=== PATIENT | female | born 2000 | race Two or more races ===

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

== ENCOUNTER 2022-08-09 15:13 | Outpatient (CLI) | payer MEDICAID, SELFPAY ==
[2022-08-09 15:47] LABS: HCT 33.8 % (36.0-46.0); HGB 11.4 g/dL (11.2-15.7); MCH 29.2 pg (27.0-33.0); MCHC 33.7 % (32.0-36.0); MCV 87 fL (80-95); MPV 9.3 fL (8.0-11.0); Platelet Count 303 10^3/uL (130-400); RDW 12.9 % (11.7-14.6); RDW-SD 40.4 fL; WBC 5.05 10^3/uL (4.4-10.8)
== END 2022-08-09 15:14 | disposition home or self-care (01) ==
LOC: LBO 08-16 15:14
PROVIDERS: PCP Nurse Practitioner Family; Visit Provider Obstetrics & Gynecology Gynecology
DX: R10.31 Right lower quadrant pain (principal)
CPT/HCPCS: 36415; 85027

== ENCOUNTER 2023-08-21 19:34 | Outpatient (REF) | payer MEDICAID, SELFPAY ==
[2023-08-21 21:08] LABS: Abs Immature Grans 0.02 10^3/uL (0.0-0.06); Absolute Basophil Count 0.04 10^3/uL (0.0-0.2); Absolute Eosinophil Count 0.15 10^3/uL (0.0-0.7); Absolute Lymphocyte Count 1.93 10^3/uL (1.2-3.4); Absolute Monocyte Count 0.57 10^3/uL (0.1-0.8); Absolute Neutrophil Count 3.35 10^3/uL (1.2-6.7); Basophils % 0.7; Eosinophils % 2.5; HCT 39.2 % (36.0-46.0); HGB 13.2 g/dL (11.2-15.7); Immature Grans % 0.3; Lymphocytes % 31.8; MCHC 33.7 % (32.0-36.0); MCV 86 fL (80-95); MPV 10.3 fL (8.0-11.0); Monocytes % 9.4; Neutrophils % 55.3; Platelet Count 344 10^3/uL (130-400); RBC 4.55 10^6/uL (3.93-5.22); RDW 12.8 % (11.7-14.6); RDW-SD 40.1 fL; WBC 6.06 10^3/uL (4.4-10.8)
[2023-08-21 21:27] LABS: ALT 22 U/L (14-59); AST 19 U/L (15-37); Albumin 4.2 g/dL (3.4-5.0); Alkaline Phosphatase 112 U/L (46-116); Anion Gap 8.6 mmol/L (3-11); BUN 15 mg/dL (7-18); Bilirubin, Total 0.1 mg/dL (0.2-1.0); CO2 25.4 mmol/L (21.0-32.0); CREATININE 0.6 mg/dL (0.55-1.02); Calcium 9.5 mg/dL (8.5-10.1); Calculated LDL 94 mg/dL (<100); Chloride 103 mmol/L (98-107); Cholesterol 164 mg/dL (<200); Estimated GFR 130.88 (mL/min/1.73m2); Glucose 86 mg/dL (74-106); HDL Cholesterol 61 mg/dL (40-60); Potassium 3.9 mmol/L (3.5-5.1); Sodium 137 mmol/L (136-145); Total Protein 8.2 g/dL (6.4-8.2); Triglyceride 49 mg/dL (<150)
[2023-08-21 21:34] LABS: Hemoglobin A1C 5.2 % (<5.7)
== END 2023-08-21 19:35 | disposition home or self-care (01) ==
LOC: NCHCN 19:34
PROVIDERS: Visit Provider Nurse Practitioner Family
DX: N92.0 Excessive and frequent menstruation with regular cycle (principal); Z00.00 Encounter for general adult medical examination without abnormal findings; R35.89 Other polyuria
CPT/HCPCS: 80053; 80061; 83036; 84443; 85025

== ENCOUNTER 2024-08-01 11:47 | Outpatient (CLI) | payer MEDICAID, SELFPAY ==
--- NOTE | 2024-08-01 11:30 | DI.RAD_ITS ---
Exam(s) XR ANKLE RT COMPLETE EXAM: XR ANKLE RT COMPLETE CLINICAL HISTORY: Acute rt ankle pain, M25.571. TECHNIQUE: 2D digital imaging was performed. Three views. COMPARISON: No exams were available for comparison FINDINGS: BONES: No acute fracture is present. No bony destructive lesion is seen. JOINTS: The ankle mortise is normally aligned. SOFT TISSUE: Mild swelling around the lateral malleolus. IMPRESSION: No fracture or ankle mortise widening. DATA REPOSITORY: RADIATION DOSE DELIVERED:
== END 2024-08-01 12:07 ==
LOC: DI 11:48
PROVIDERS: Visit Provider Nurse Practitioner Family
DX: M25.571 Pain in right ankle and joints of right foot (principal)
CPT/HCPCS: 73610

== ENCOUNTER 2024-08-20 15:50 | Outpatient (CLI) | payer MEDICAID, SELFPAY ==
--- NOTE | 2024-08-20 16:07 | DI.RAD_ITS ---
Exam(s) XR ANKLE RT COMPLETE EXAM: XR ANKLE RT COMPLETE CLINICAL HISTORY: Pain of rt ankle and joints of rt foot, swelling, previous tib/fib imaging. TECHNIQUE: 2D digital imaging was performed. Three views. COMPARISON: CR XR ANKLE RT COMPLETE from 08/01/2024 FINDINGS: BONES: No acute fracture is present. No bony destructive lesion is seen. JOINTS: The ankle mortise is normally aligned. SOFT TISSUE: Normal. IMPRESSION: Unremarkable radiographs of the right ankle. DATA REPOSITORY: RADIATION DOSE DELIVERED:
== END 2024-08-20 16:10 ==
LOC: DI 15:55
PROVIDERS: Visit Provider Family Medicine
DX: M25.571 Pain in right ankle and joints of right foot (principal)
CPT/HCPCS: 73610

== ENCOUNTER 2024-10-04 21:42 | Outpatient (REF) | payer MEDICAID, SELFPAY | END 2024-10-04 21:43 | disposition home or self-care (01) | LOC: NCHCN 21:42 | PROVIDERS: Visit Provider Nurse Practitioner Family | DX: R10.30 Lower abdominal pain, unspecified (principal) | CPT/HCPCS: 87480; 87510; 87660 ==

== ENCOUNTER 2024-10-18 00:09 | Outpatient (CLI) | payer MEDICAID, SELFPAY ==
--- NOTE | 2024-10-18 | DI.US_ITS ---
Exam(s) US PELVIS EXAM: US PELVIS CLINICAL HISTORY: SUPRAPUBIC PAIN, LOWER ABD PIAN UNSPECIFIED, R10.30. TECHNIQUE: Transabdominal pelvic ultrasound was performed using standard protocol. The patient decl ined the transvaginal portion of the examination. COMPARISON: US US PELVIS from 10/14/2021 FINDINGS: UTERUS: Position: Anteverted. Size: 7.6 long by 3.4 AP by 4.2 transverse cm Endometrium: 0.4 cm. Normal for patient's menstrual status. Myometrium: Unremarkable. Cervix: Unremarkable. OVARIES: Right: 2.6 x 2.2 x 1.6 cm Cyst or mass: No suspicious cystic or solid masses. Left: 2.6 x 2.3 x 1.8 cm Cyst or mass: No suspicious cystic or solid masses. DOPPLER: Color: Symmetric and uniform flow to both ovaries. CUL-DE-SAC: Free fluid: None. Other: None. IMPRESSION: 1. Normal-appearing uterus with endometrial stripe within normal limits. 2. Unremarkable bilateral ovaries. DATA REPOSITORY:
== END 2024-10-18 00:29 ==
PROVIDERS: Visit Provider Nurse Practitioner Family
DX: R10.30 Lower abdominal pain, unspecified (principal)
CPT/HCPCS: 76856

== ENCOUNTER 2024-10-23 15:32 | Outpatient (CLI) | payer MEDICAID, SELFPAY ==
[2024-10-23 16:05] LABS: ALT 12 U/L (14-59); AST 12 U/L (15-37); Albumin 3.8 g/dL (3.4-5.0); Alkaline Phosphatase 100 U/L (46-116); Anion Gap 10.9 mmol/L (3-11); BUN 15 mg/dL (7-18); Bilirubin, Total 0.23 mg/dL (0.2-1.0); CO2 24.1 mmol/L (21.0-32.0); CREATININE 0.8 mg/dL (0.55-1.02); Calcium 9.3 mg/dL (8.5-10.1); Chloride 103 mmol/L (98-107); Estimated GFR 106.77 (mL/min/1.73m2); Glucose 98 mg/dL (74-106); Potassium 3.8 mmol/L (3.5-5.1); Sodium 138 mmol/L (136-145); Total Protein 7.9 g/dL (6.4-8.2)
== END 2024-10-23 15:33 | disposition home or self-care (01) ==
LOC: LBO 15:41
PROVIDERS: Visit Provider Nurse Practitioner Family
DX: R10.9 Unspecified abdominal pain (principal)
CPT/HCPCS: 36415; 80053

== ENCOUNTER 2024-10-29 02:42 | Outpatient (CLI) | payer MEDICAID, SELFPAY ==
--- NOTE | 2024-10-29 | DI.CT_ITS ---
Exam(s) CT ABDOMEN PELVIS W EXAM: CT ABDOMEN PELVIS W CLINICAL HISTORY: R10.3 Unspecified abd pain. TECHNIQUE: Imaging Protocol: Axial computed tomography images with coronal and sagittal reformatted images were created and reviewed CONTRAST MATERIAL: Intravenous: Omnipaque 350 Contrast volume:70 ml Oral: yes COMPARISON: No exams were available for comparison FINDINGS: ABDOMEN and PELVIS: Lung Bases: No acute findings. Liver: Normal density. No suspicious mass. Gallbladder and biliary tract: No radiodense calculus. No wall thickening or pericholecystic fluid. No biliary dilation. Pancreas: Normal density. No abnormal calcifications or inflammatory process. No evidence of mass. Spleen: Normal. Kidneys: Normal size, contour and axis. No radiodense stones. No obstructive uropathy. No suspicious masses seen. Adrenal glands: No masses seen. Vasculature: Abdominal aorta non-dilated. Soft tissues: Unremarkable. Bladder: No gross wall thickening. No calculi.No focal mass. Bowel: The small bowel is well opacified with oral contrast. The colon is opacified to the level of the mid descending colon. No obstruction. No bowel wall thickening. No evidence of appendicitis. Peritoneal cavity: No ascites. No focal collection. No mesenteric inflammatory response. No free air . Bones: Unremarkable for age. Reproductive organs: Unremarkable. Lymph nodes: No pathologically enlarged lymph nodes. IMPRESSION:: No acute abnormality in the abdomen or pelvis. RADIATION DOSE DELIVERED: Total DLP DATA REPOSITORY: All CT scans at this facility are submitted to the National Radiology Data Registry (NRDR) Dose Index Registry (DIR) with the [employer] (ACR). RADIATION OPTIMIZATION: All CT scans at this facility use at least one of these dose optimization te chniques: automated exposure control; mA and/or kV adjustment per patient size (includes targeted exa ms where dose is matched to clinical indication); or iterative reconstruction.
[2024-10-29] MEDS: Barium Sulfate 2% W/V-Berry Smoothie 450 ML BTL PO (12:59)
[2024-10-29] MEDS: Barium Sulfate 2% W/V-Creamy Vanilla Smoothie 450 ML BTL PO (13:00)
[2024-10-29] MEDS: Normal Saline - Diluent 50 ML VIAL IJ (15:19)
[2024-10-29] MEDS: Omnipaque 350 MG/ML 100 ML BTL 70 ML IJ (15:19)
== END 2024-10-29 03:02 ==
LOC: DI 02:43
PROVIDERS: PCP Nurse Practitioner Family; Visit Provider Nurse Practitioner Family
DX: R10.30 Lower abdominal pain, unspecified (principal)
CPT/HCPCS: 74177; J3490

== ENCOUNTER 2024-11-06 20:13 | Emergency (ER) | payer MEDICAID, SELFPAY ==
--- NOTE | 2024-11-06 20:00 | RT.EKG_ITS ---
APPROVED REPORT Exam: Resting ECG Reason for Exam: chest pain Patient Location: E HR:76 bpm ECG Measurements Heart Rate 76 AXIS CO 133 P 53 QRSd 77 QRS 48 QT 366 T 28 QTc 412 Conclusion Sinus rhythm...normal P axis, V-rate 60- 99 Probable left atrial enlargement...P >50mS, <-0.10mV V1 No STEMI
[2024-11-06 20:15] VITALS: BP 122/85; PULSE 78; RESP 18; TEMP 36.1; O2SAT 97
[2024-11-06 20:18] VITALS: RESP 18
[2024-11-06] MEDS: Ondansetron O.D.T. 4 MG TABEF PO (20:39)
--- NOTE | 2024-11-06 20:45 | DI.RAD_ITS ---
Exam(s) XR CHEST 2V PA LATERAL EXAM: XR CHEST 2V PA LATERAL CLINICAL HISTORY: Chest pain, cough TECHNIQUE: 2D digital imaging was performed of the chest. Two images were obtained. PA and lateral views were obtained. COMPARISON: No exams were available for comparison FINDINGS: MEDIASTINUM: Normal. HEART: Normal. PULMONARY VASCULATURE: Normal. LUNGS: Clear. PLEURAL SPACE: No pleural effusion or pneumothorax. BONE:Within normal limits for the patient's age. OTHER FINDINGS:Normal. IMPRESSION: No acute pulmonary findings. DATA REPOSITORY: RADIATION DOSE DELIVERED:
--- NOTE | 2024-11-06 20:47 | W.ED.GENAD ---
Discharge Plan Disposition Patient Disposition: Home Condition: Stable Discharge Details Clinical Impression: Anterior chest wall pain, Viral URI Primary Care Provider: Mechelle Gallego ED Provider: Alanna De La Rosa Home Meds and New Rx's Prescriptions: Continued sertraline 50 mg tablet 50 mg PO DAILY propranolol 10 mg tablet See Rx Instructions PO .COMPLEX Qty: 270 3RF Rx Instructions: 20mg am and 10mg at 4pm PO; fluoxetine 20 mg capsule 20 mg PO DAILY Qty: 30 1RF Rx Instructions: Take once daily by mouth with 40mg capsule. fluoxetine 40 mg capsule 40 mg PO DAILY Qty: 30 1RF Rx Instructions: Take once daily by mouth with 20mg capsule. famotidine 20 mg tablet See Rx Instructions .ROUTE .COMPLEX Qty: 60 3RF Dose Instruction: TAKE ONE TABLET BY MOUTH TWICE A DAY Rx Instructions: TAKE ONE TABLET BY MOUTH TWICE A DAY norgestimate-ethinyl estradiol [Ortho Tri-Cyclen (28)] 0.18/0.215/0.25 mg-35 mcg (28) tablet 1 tab PO DAILY Qty: 84 4RF multivitamin Tablet 1 tab PO DAILY Discharge Instructions Instructions: Costochondritis, Viral Upper Respiratory Infection, Adult (DC) Additional Instructions: Negative for rapid COVID and flu swab today. Chest x-ray within normal limits. I do suspect that this is chest wall pain. EKG is within normal limits. This is probably caused from your cough. Please take Tylenol or Ibuprofen with food every 4-6 hours as needed for pain and swelling. Alternate ice and heat. Follow up with primary care provider in 3-5 days. Return to ED sooner if any worsening or concerns. Referrals: Mechelle Gallego [Primary Care Provider] - 5 days HPI General Mode of arrival: ambulatory. Date/Time Provider Initiated Documentation: 11/06/24 20:37. Limitations to Documentation: no limitations. Information obtained by: patient, RN notes reviewed and old records reviewed. HPI Narrative: 24-year-old female presents to the ER with a chief complaint of midsternal chest pain which is reproducible with palpation. Cough and not feeling well all day. She also reports that she vomited couple times today.. She denies any dysuria vaginal discharge or bleeding. She reports that she is not had blood. In the last couple of months that has been followed by her PCP. Past medical history include reactive airway dysfunction syndrome, developmental delay. SHe does take pills. Has not been taking any Tylenol or ibuprofen today. Related Data Home Medications ?Medication ?Instructions ?Recorded ?Confirmed multivitamin 1 tab PO DAILY 10/01/18 11/06/24 fluoxetine 20 mg capsule 20 mg PO DAILY #30 caps 04/03/23 11/06/24 fluoxetine 40 mg capsule 40 mg PO DAILY #30 caps 04/03/23 11/06/24 famotidine 20 mg tablet See Rx Instructions .Route 04/21/23 11/06/24 .COMPLEX #60 tabs propranolol 10 mg tablet See Rx Instructions PO .COMPLEX 06/20/23 11/06/24 #270 tabs norgestimate-ethinyl estradiol 1 tab PO DAILY #84 tabs 07/17/23 11/06/24 0.18 mg/0.215mg/0.25mg-35 mcg(28)tablet (Ortho Tri-Cyclen (28)) sertraline 50 mg tablet 50 mg PO DAILY 08/01/24 11/06/24 Previous Rx's ?Medication ?Instructions ?Recorded fluoxetine 20 mg capsule 20 mg PO DAILY #30 caps 04/03/23 fluoxetine 40 mg capsule 40 mg PO DAILY #30 caps 04/03/23 famotidine 20 mg tablet See Rx Instructions .Route 04/21/23 .COMPLEX #60 tabs propranolol 10 mg tablet See Rx Instructions PO .COMPLEX 06/20/23 #270 tabs norgestimate-ethinyl estradiol 1 tab PO DAILY #84 tabs 07/17/23 0.18 mg/0.215mg/0.25mg-35 mcg(28)tablet (Ortho Tri-Cyclen (28)) Allergies Allergy/AdvReac Type Severity Reaction Status Date / Time Penicillins Allergy Intermediate RASH Verified 11/06/24 20:17 General Stated Complaint: Chest Pain CAIN: 3 Review of Systems All systems reviewed & are unremarkable except as noted in HPI and below Constitutional Constitutional: Reports as per HPI Cardiovascular Cardiovascular: Reports as per HPI and Reports chest pain Respiratory Respiratory: Reports chest congestion and Reports cough Exam Narrative Exam Narrative: Constitutional: Alert and oriented x3. Appears stated age. Normal body habitus. Head: Normocephalic, no trauma. Eyes: Pupils PERRL, Red reflex noted, EOM's intact. Eyelids symmetrical without lesions, discharge, or swelling. ENT: Bilateral TM's WNL, External ear normal to inspection, no mastoid TTP, swelling, or erythema, Nasal turbinates WNL, no nasal discharge. Normal dentition, Posterior pharynx WNL, no exudate. Chest: RRR, Normal S1, S2, distal pulses intact. Chest pain reproducible with palpation. Resp: Lungs clear to auscultation bilaterally, no wheezes, rales, or rhonchi. Abdomen: Soft, non-distended, Normoactive bowel sounds all 4 quads. Musculoskeletal: Normal gait, Moves all 4 extremities without difficulty. Skin: No suspicious rashes or lesions. Capillary refill less than 2 sec. Neurologic: Cranial nerves II-XII intact. Alert and oriented x 3. Motor: No deficits noted. Sensory: Intact bilaterally all 4 extremities. Hematologic/Lymphatic: No ecchymosis, no lymphadenopathy. Course Vital Signs Vital signs: Vital Signs Temperature 36.1 C L 11/06/24 20:15 Pulse 78 11/06/24 20:15 Respiratory Rate 18 11/06/24 20:15 Blood Pressure 122/85 11/06/24 20:15 Pulse Oximetry 97 11/06/24 20:15 Temperature 36.1 C L 11/06/24 20:15 Temperature Source Oral 11/06/24 20:15 Pulse 78 11/06/24 20:15 Respiratory Rate 18 11/06/24 20:18 Respiratory Effort Normal, Non-Labored 11/06/24 20:18 Respiratory Depth Normal 11/06/24 20:18 Respiratory Pattern Normal 11/06/24 20:18 Blood Pressure 122/85 11/06/24 20:15 Blood Pressure Position Sitting 11/06/24 20:15 Pulse Oximetry 97 11/06/24 20:15 Oxygen Delivery Method Room Air 11/06/24 20:15 Oxygen Flow Rate 0 11/06/24 20:15 Pain Level 5 11/06/24 20:18 Medical Decision Making 24-year-old female presents to the ER with a chief complaint of midsternal chest pain which is reproducible with palpation. Cough and not feeling well all day. She also reports that she vomited couple times today.. She denies any dysuria vaginal discharge or bleeding. She reports that she is not had blood. In the last couple of months that has been followed by her PCP. Past medical history include reactive airway dysfunction syndrome, developmental delay. SHe does take pills. Has not been taking any Tylenol or ibuprofen today. EKG done in triage. Flu COVID swab ordered by ED staff. Chest x-ray Zofran 4 mg ODT, Tylenol p.o. Urinalysis and urine test. EKG was reviewed by myself and Dr. Herbert ER attending, normal sinus rhythm, no old EKG available for review. Chest x-ray within normal limits. Negative for rapid POC COVID flu. I do suspect chest wall pain due to the coughing. Will instruct on Tylenol ibuprofen alternating ice and heat and strict return instructions. This text was generated using [employer] dictation system, please disregard any oddities of phrase or misspellings. Imaging Data Radiologic Study: Imaging: X-Ray Radiologist's impression: TECHNIQUE: Imaging protocol: Radiologic exam of the chest. Views: 2 views. COMPARISON: CT ABDOMEN PELVIS W 10/29/2024 3:02 PM FINDINGS: Lungs: Unremarkable. No consolidation. Pleural spaces: Unremarkable. No pleural effusion. No pneumothorax. Heart/Mediastinum: Unremarkable. No cardiomegaly. Bones/joints: Unremarkable. IMPRESSION: No acute findings. Thank you for allowing us to participate in the care of your patient. Dictated and Authenticated by: Alexander Lewis MD Quality:SDOH Health Related Social Needs: No Data to Display PFSH All Active Problems (Updated 11/06/24 @ 22:11 by Alanna De La Rosa NP) Viral URI (Acute) Anterior chest wall pain (Acute) Right lower quadrant pain (Acute) Focal tenderness with no fever chills nausea or vomiting we will check CBC. Oral contraceptive pill surveillance (Acute) 07/2022. Currently no breakthrough bleeding on current regime x1 month. We will continue to follow-up on a monthly basis. 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) Routine child health exam (Chronic 03/25/14) Medical History Acid reflux disease Causes chest pain Family disruption due to child in welfare custody Fracture of fifth metacarpal bone (06/17/13) Reactive airways dysfunction syndrome Developmental delay Surgical History Myringotomy w/ PE (pressure equalizing) tubes Social History Smoking/Tobacco Use Status: Never Smoking risk assessment performed?: Yes Alcohol Intake: never Drug use: Never Substance use type: does not use Household members: adopted family and other Details: Patient brother adopted when children. Other siblings and family are also Housing: house Number of Children: 0 Education Level: high school Details: Transition year Do you need help understanding health information?: Always current occupation: Works in [employer] in [place] Pets and animals: Yes Pets and animals: dog(s) Sexually active: No What type of physical activity do you participate in: walking Seatbelt use: always Do you feel safe at home: Yes Do you feel safe in your relationship?: Yes Additional Social history: Lives with adopted mom and dad
[2024-11-06] MEDS: Acetaminophen 500 MG TAB 1000 MG PO (21:00)
[2024-11-06 21:13] LABS: Bilirubin Negative (Negative); Blood Negative (Negative); Clarity Clear (Clear); Glucose Negative (Negative); Ketones Negative (Negative); Leukocyte Esterase Small (Negative); Nitrite Negative (Negative); Specific Gravity 1.025 (1.005-1.025)
[2024-11-06 21:20] LABS: Bacteria Few HPF (Negative); C & S Indicated? No; Crystals Rare Amorphous HPF (Negative); Epithelial Cells Many HPF (Negative); Mucus Trace (Negative); RBC Negative HPF (0-2)
--- NOTE | 2024-11-06 22:09 | DI.VRAD_ITS ---
PROCEDURE INFORMATION: Exam: XR Chest Exam date and time: 11/06/2024 9:44 PM Age: 24 years old Clinical indication: Cough, chest pain TECHNIQUE: Imaging protocol: Radiologic exam of the chest. Views: 2 views. COMPARISON: CT ABDOMEN PELVIS W 10/29/2024 3:02 PM FINDINGS: Lungs: Unremarkable. No consolidation. Pleural spaces: Unremarkable. No pleural effusion. No pneumothorax. Heart/Mediastinum: Unremarkable. No cardiomegaly. Bones/joints: Unremarkable. IMPRESSION: No acute findings. Dictated and Authenticated by: Alexander Lewis MD. Orderin Rj Mondragon MD
[2024-11-06 22:27] VITALS: BP 100/52; PULSE 66; RESP 19; TEMP 36.7; O2SAT 99
--- NOTE | 2024-11-07 10:50 | NUR.NOTE ---
Nursing Note: Received call from patient who needs a work note after recent ER visit. Patient requesting it to be emailed, emailed it to email on file which was verified w/patient
--- NOTE | 2024-11-07 11:38 | NUR.NOTE ---
Access chart to get pt phone number to let her know she can sisal picker the work note. Nursing Note:
== END 2024-11-06 22:27 | disposition home or self-care (01) ==
PROVIDERS: Emergency Provider Registered Nurse Emergency; PCP Nurse Practitioner Family
DX: R07.89 Other chest pain (principal); J06.9 Acute upper respiratory infection, unspecified; B97.89 Other viral agents as the cause of diseases classified elsewhere
CPT/HCPCS: 81025; 87426; 93005; 99285; 71046; 81003; 81015; 93010; 99284

== ENCOUNTER 2024-12-26 18:23 | Outpatient (REF) | payer MEDICAID, SELFPAY | END 2024-12-26 18:24 | disposition home or self-care (01) | LOC: LBN 18:23 | PROVIDERS: PCP Nurse Practitioner Family; Visit Provider Physician Assistant Medical | DX: J02.9 Acute pharyngitis, unspecified (principal) | CPT/HCPCS: 87070 ==

== ENCOUNTER 2025-01-13 16:45 | Outpatient (CLI) | payer MEDICAID, SELFPAY ==
[2025-01-13 17:13] LABS: Hemoglobin A1C 5.2 % (<5.7)
[2025-01-13 17:46] LABS: TSH (W/Ref FT4) 2.68 uIU/mL (0.36-3.74)
[2025-01-14 18:31] LABS: Prolactin 21.3 ng/mL (See Note)
[2025-01-27 11:56] LABS: Testosterone, Bioavailable 1.3 ng/dL; Testosterone, Free 0.98 ng/dL (<0.13-1.08); Testosterone, Total 36 ng/dL (8-60)
== END 2025-01-13 16:46 | disposition home or self-care (01) ==
LOC: LBO 16:46
PROVIDERS: PCP Nurse Practitioner Family; Visit Provider Obstetrics & Gynecology
DX: N91.2 Amenorrhea, unspecified (principal); L68.0 Hirsutism; N64.52 Nipple discharge
CPT/HCPCS: 36415; 84402; 84403; 84410; 83036; 84146; 84443

== ENCOUNTER 2025-01-23 20:31 | Emergency (ER) | payer MEDICAID, SELFPAY ==
--- NOTE | 2025-01-23 20:31 | W.ED.GENAD ---
Discharge Plan Disposition Patient Disposition: Home Discharge Details Clinical Impression: Acute effusion of both middle ears, Hearing loss Primary Care Provider: Mechelle Gallego ED Provider: Jn Herbert Home Meds and New Rx's Prescriptions: New cefpodoxime 200 mg tablet 200 mg PO Q12H Qty: 20 0RF Rx Instructions: must administer with a meal/food Continued propranolol 10 mg tablet See Rx Instructions PO .COMPLEX Qty: 270 3RF Rx Instructions: 20mg am and 10mg at 4pm PO; famotidine 20 mg tablet See Rx Instructions .ROUTE .COMPLEX Qty: 60 3RF Dose Instruction: TAKE ONE TABLET BY MOUTH TWICE A DAY Rx Instructions: TAKE ONE TABLET BY MOUTH TWICE A DAY sertraline 50 mg tablet 100 mg PO DAILY albuterol sulfate 90 mcg/actuation HFA aerosol inhaler 2 puff inhalation Q4H PRN Cortisporin-TC 3.3-3-10-0.5 mg/mL drops,suspension 4 drp otic (ear) TID hydroxyzine HCl 25 mg tablet 25 mg PO TID PRN ondansetron 4 mg tablet,disintegrating 4 mg PO BID PRN multivitamin Tablet 1 tab PO DAILY Discharge Instructions Instructions: Ear Infection ED Additional Instructions: You are seen in the emergency department for your ear pain. You are found to have ear infections. As we discussed these may be the result of viruses. In the event that there is a component of a bacterial infection you are receiving antibiotics that you should take as directed. A referral has been placed for you to be seen by the ear nose and throat team. As we discussed if you develop fevers worsening pain or cannot eat or drink please return immediately to the emergency department. Referrals: Teo Vela MD [ [facility] STAFF PHYSICIAN] - [facility] General Date/Time Provider Initiated Documentation: 01/23/25 20:31. HPI Narrative: MDM This is an uncomfortable appearing 24-year-old female failing outpatient management of bilateral acute otitis media with bilateral enlarged anterior cervical lymph nodes concerning for systemic process for which patient will undergo CT scan to assess for deeper abscesses. Patient has no mastoid tenderness to suggest mastoiditis. Given failed outpatient management patient likely has viral otitis. She is not a diabetic to suggest malignant otitis externa. She is not having any oral pain to suggest odontogenic infection. No nausea nor vomiting to suggest subdural empyema. Her uvula is midline so not suspicious for peritonsillar abscess. She has good range of motion in her neck so my suspicion is low for retropharyngeal abscess. She has no conjunctival injection to suggest nontypeable H. influenzae. She has no fevers to suggest Lemierre's syndrome. She has no significant posterior oropharynx erythema to suggest strep pharyngitis. In the absence of fever I did not send mono. No [place] spots in mouth to suggest measles. She is handling her secretions so my suspicion for bacterial tracheitis is low. She has no significant neck pain or difficulty swallowing nor unintentional weight loss I do not feel that she requires flexible laryngoscopy to assess her upper airway. She has had no B symptoms though malignancy is on the differential. No vesicles in ear to suggest bullous myringitis. In the setting of hearing loss I consider whether or not to complete a Ward or [place] test. Given the bilateral middle ear effusions I felt that the patient most likely had conductive hearing loss so I did not perform additional testing. I treated patient with cefpodoxime in the event that there was a chronic bacterial infection that had not responded to initial treatment (though I am not certain which antibiotics were used this patient does not have record). A CAT scan of the neck was performed, which showed no signs of a larger infection or issues outside of the ears. Eardrops are not recommended as there is no external infection. I sent today message will be sent to the ENT department to expedite her follow-up appointment. If she experiences fevers or worsening symptoms, she should return to the ER. HPI This is a 24-year-old female who received her immunizations during childhood now presenting to the emergency department via private vehicle in the setting of ear infections.. She was diagnosed with an ear infection approximately 1 month ago and was prescribed an antibiotic regimen. Despite completing the course, the infection persisted. A second course of antibiotics and prednisone was initiated, with the final dose administered today. Additionally, she was prescribed eardrops. Her scheduled appointment was canceled due to the ongoing infection, and she was referred to an rehabilitation center manager, with the earliest available appointment in 03/2025. She has been experiencing progressive hearing loss, which began about a week ago. She reports no fevers or oral pain but does experience intermittent throat discomfort. She has a history of ear infections during her childhood but none in recent years. She had a strep throat infection a few months ago, for which a tonsillectomy was considered but ultimately deemed unnecessary. She continues to experience ear pain. She reports no respiratory distress or neck pain. She has been observed holding her ears. During her last medical visit, it was noted that she had significant fluid accumulation in her knee. Supplemental Information She is on sertraline and a medication as needed for anxiety. She takes Zofran for nausea but has not taken it in a long time. She takes a multivitamin and a medication for tremor. She also takes a medication for acid reflux. Exam General: Well-appearing in no acute distress speaking in complete sentences. Head: Normocephalic, atraumatic. Eye:[Pupils equal, round reactive to light.] Extraocular eye movements intact. No conjunctival injection. No scleral icterus. Ear, nose, mouth, throat: Bilateral TMs dull not bulging with opacity but no obvious fluid levels. Right TM mildly erythematous. No mastoid tenderness bilaterally. No proptosis. Normal voice, handling secretions normally. Bilateral anterior tender cervical lymph nodes. No brawny edema submentally. Uvula midline. Neck: Trachea midline. Good range of motion in neck. Cardiovascular: Well-perfused distal extremities. Respiratory: Nonlabored respiration. Clear lungs bilaterally. Gastrointestinal: Nondistended abdomen. Musculoskeletal: No edema. Moving all 4 extremities spontaneously. Skin: Normal for age and race, grossly normal temperature and turgor. No acute rash. Neurologic: Alert and appropriate, no apparent acute deficits. Psychiatric: Mood and manner are appropriate. Grooming and personal hygiene are appropriate. Related Data Home Medications ?Medication ?Instructions ?Recorded ?Confirmed multivitamin 1 tab PO DAILY 10/01/18 01/23/25 famotidine 20 mg tablet See Rx Instructions .Route 04/21/23 01/23/25 .COMPLEX #60 tabs propranolol 10 mg tablet See Rx Instructions PO .COMPLEX 06/20/23 01/23/25 #270 tabs albuterol sulfate 90 mcg/actuation 2 puff inhalation Q4H PRN 01/23/25 01/23/25 aerosol inhaler cefpodoxime 200 mg tablet 200 mg PO Q12H #20 tabs 01/23/25 hydroxyzine HCl 25 mg tablet 25 mg PO TID PRN 01/23/25 01/23/25 [id number] 3.3 4 drp otic (ear) TID 01/23/25 01/23/25 mg-3 mg-10 mg-0.5 mg/mL ear drops,susp (Cortisporin-TC) ondansetron 4 mg disintegrating 4 mg PO BID PRN 01/23/25 01/23/25 tablet sertraline 50 mg tablet 100 mg PO DAILY 01/23/25 01/23/25 Previous Rx's ?Medication ?Instructions ?Recorded famotidine 20 mg tablet See Rx Instructions .Route 04/21/23 .COMPLEX #60 tabs propranolol 10 mg tablet See Rx Instructions PO .COMPLEX 06/20/23 #270 tabs cefpodoxime 200 mg tablet 200 mg PO Q12H #20 tabs 01/23/25 Allergies Allergy/AdvReac Type Severity Reaction Status Date / Time Penicillins Allergy Intermediate RASH Verified 01/23/25 20:39 ethinyl estradiol (From Allergy Unknown Skin Rash Unverified 01/23/25 20:39 Xulane) norelgestromin (From Xulane) Allergy Unknown Skin Rash Unverified 01/23/25 20:39 General CAIN: 3 Medical Decision Making Quality:SDOH Health Related Social Needs: No Data to Display PFSH All Active Problems (Updated 01/23/25 @ 22:47 by Jn Herbert MD) Hearing loss (Acute) Acute effusion of both middle ears (Acute) Acute otitis media, bilateral (Acute) Amenorrhea (Acute) Right lower quadrant pain (Acute) Focal tenderness with no fever chills nausea or vomiting we will check CBC. Oral contraceptive pill surveillance (Acute) 07/2022. Currently no breakthrough bleeding on current regime x1 month. We will continue to follow-up on a monthly basis. 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) Routine child health exam (Chronic 03/25/14) Medical History (Updated 01/23/25 @ 22:47 by Jn Herbert MD) Impacted cerumen of both ears COVID-19 Acute depression Injury of head Suprapubic pain Abdominal pain Heartburn Vomiting Cough Delay in physiological development Malaise and fatigue Chronic constipation Sore throat Viral syndrome Acid reflux disease Causes chest pain Family disruption due to child in welfare custody Fracture of fifth metacarpal bone (06/17/13) Reactive airways dysfunction syndrome Developmental delay Surgical History Myringotomy w/ PE (pressure equalizing) tubes Family History (Updated 01/23/25 @ 10:23 by Shoshana Bourne RN) Self Adopted Social History Smoking/Tobacco Use Status: Never Smoking risk assessment performed?: Yes Alcohol Intake: never Drug use: Never Substance use type: does not use Household members: adopted family and other Details: Patient brother adopted when children. Other siblings and family are also Housing: house Number of Children: 0 Education Level: high school Details: Transition year Do you need help understanding health information?: Always current occupation: Works in [employer] at [employer] in [place] Pets and animals: Yes Pets and animals: dog(s) Sexually active: No What type of physical activity do you participate in: walking Seatbelt use: always Do you feel safe at home: Yes Do you feel safe in your relationship?: Yes Additional Social history: Lives with adopted mom and dad
[2025-01-23 20:34] VITALS: BP 130/80; PULSE 72; RESP 18; TEMP 36.8; O2SAT 97
[2025-01-23 21:17] LABS: Abs Immature Grans 0.05 10^3/uL (0.0-0.06); Absolute Basophil Count 0.02 10^3/uL (0.0-0.2); Absolute Eosinophil Count 0.02 10^3/uL (0.0-0.7); Absolute Lymphocyte Count 1.98 10^3/uL (1.2-3.4); Absolute Monocyte Count 0.74 10^3/uL (0.1-0.8); Absolute Neutrophil Count 4.21 10^3/uL (1.2-6.7); Basophils % 0.3 %; Eosinophils % 0.3 %; HCT 36.5 % (36.0-46.0); HGB 12.5 g/dL (11.2-15.7); Immature Grans % 0.7 %; Lymphocytes % 28.2 %; MCH 28.9 pg (27.0-33.0); MCHC 34.2 % (32.0-36.0); MCV 85 fL (80-95); MPV 9.2 fL (8.0-11.0); Monocytes % 10.5 %; Platelet Count 351 10^3/uL (130-400); RBC 4.32 10^6/uL (3.93-5.22); RDW 13.3 % (11.7-14.6); RDW-SD 41.4 fL; WBC 7.02 10^3/uL (4.4-10.8)
[2025-01-23] MEDS: Normal Saline - Diluent 50 ML VIAL IJ (21:19)
[2025-01-23] MEDS: Omnipaque 350 MG/ML 100 ML BTL IJ (21:22)
[2025-01-23 21:26] LABS: Anion Gap 9.1 mmol/L (3-11); BUN 16 mg/dL (7-18); CO2 26.9 mmol/L (21.0-32.0); CREATININE 0.6 mg/dL (0.55-1.02); Calcium 9.4 mg/dL (8.5-10.1); Chloride 102 mmol/L (98-107); Estimated GFR 130.07 (mL/min/1.73m2); Glucose 100 mg/dL (74-106); Potassium 3.9 mmol/L (3.5-5.1); Sodium 138 mmol/L (136-145)
--- NOTE | 2025-01-23 21:29 | DI.CT_ITS ---
Exam(s) CT NECK W EXAM: CT NECK W INDICATION: Bilateral anterior neck pain tenderness acute otit. COMPARISON: No exams were available for comparison TECHNIQUE: FINDINGS: VISUALIZED PARANASAL SINUSES: Unremarkable. MIDDLE EAR CAVITIES: No fluid nor masses nor ossicular destruction. NASOPHARYNX: Unremarkable ORODENTAL: Unremarkable. OROPHARYNX: Unremarkable. No masses evident. HYPOPHARYNX: Unremarkable. Valleculae and epiglottis and aryepiglottic folds appear normal. VOCAL CORDS: Unremarkable. No masses evident. Subglottic airway appears unremarkable. THYROID GLAND: Unremarkable. Normal size and no obvious nodules. SALIVARY GLANDS: Unremarkable. No significant findings in the parotid and submandibular glands. LYMPH NODES: There is no adenopathy evident on either side of the neck or in the supraclavicular bisi ons. CERVICAL SPINE: No fractures nor listhesis and no disc space narrowing. Bone density normal. Facet joints unremarkable. VISUALIZED LUNG APICES: No significant findings. IMPRESSION: 1. No significant findings on this CT scan of the soft tissues of the neck. RADIATION DOSE DELIVERED: 295.24mGy.cm Total DLP DATA REPOSITORY: All CT scans at this facility are submitted to the National Radiology Data Registry (NRDR) Dose Index Registry (DIR) with the [employer] (ACR). RADIATION OPTIMIZATION: All CT scans at this facility use at least one of these dose optimization te chniques: automated exposure control; mA and/or kV adjustment per patient size (includes targeted exa ms where dose is matched to clinical indication); or iterative reconstruction.
[2025-01-23] MEDS: Acetaminophen 500 MG TAB 1000 MG PO (21:48)
--- NOTE | 2025-01-23 22:04 | DI.VRAD_ITS ---
PROCEDURE INFORMATION: Exam: CT Neck With Contrast Exam date and time: 01/23/2025 9:15 PM Age: 24 years old Clinical indication: Other: Bilateral anterior neck pain tenderness acute chris externa TECHNIQUE: Imaging protocol: Computed tomography of the neck with contrast. Contrast material: OMNIPAQUE 350; Contrast volume: 100 ml; Contrast route: INTRAVENOUS (IV); COMPARISON: CR XR CHEST 2V PA LATERAL 11/06/2024 9:44 PM FINDINGS: Salivary glands: Normal. Glands are normal in size. Pharynx: Unremarkable. No significant tonsillar enlargement. Larynx: Unremarkable. Epiglottis is normal. Thyroid: Normal. No enlarged or calcified nodules. Trachea: Visualized trachea is unremarkable. Lungs: Unremarkable as visualized. Lymph nodes: Unremarkable. No lymphadenopathy. Bones/joints: Unremarkable. No acute fracture. Soft tissues: Unremarkable. No significant soft tissue swelling. IMPRESSION: No acute findings. Dictated and Authenticated by: Satya Cortés MD. Orderin Piedad Ragsdale MD
[2025-01-23 22:51] VITALS: BP 130/79; PULSE 88; RESP 20; TEMP 36.9; O2SAT 99
[2025-01-23] MEDS: Cefpodoxime 200 MG TAB PO (22:53)
== END 2025-01-23 22:53 | disposition home or self-care (01) ==
PROVIDERS: Emergency Provider Emergency Medicine; PCP Nurse Practitioner Family
DX: H65.193 Other acute nonsuppurative otitis media, bilateral (principal); H91.93 Unspecified hearing loss, bilateral
CPT/HCPCS: 99285; 99283; 70491; 80048; 85025; J3490

== ENCOUNTER 2025-04-09 19:30 | Emergency (ER) | payer MEDICAID, SELFPAY ==
[2025-04-09 19:32] VITALS: BP 126/75; PULSE 73; RESP 16; TEMP 36.9; O2SAT 98
--- NOTE | 2025-04-09 19:44 | W.ED.GENAD ---
Discharge Plan Disposition Patient Disposition: Home Condition: Stable Discharge Details Clinical Impression: Sprain of right ankle Primary Care Provider: Mechelle Gallego ED Provider: Rob Phillips Home Meds and New Rx's Prescriptions: Continued norethindrone-e.estradiol-iron [[place] Fe 10/07 (28)] 1 mg-20 mcg (21)/75 mg (7) tablet 1 tab PO DAILY famotidine 20 mg tablet See Rx Instructions .ROUTE .COMPLEX Qty: 60 3RF Dose Instruction: TAKE ONE TABLET BY MOUTH TWICE A DAY Rx Instructions: TAKE ONE TABLET BY MOUTH TWICE A DAY sertraline 50 mg tablet 100 mg PO DAILY albuterol sulfate 90 mcg/actuation HFA aerosol inhaler 2 puff inhalation Q4H PRN hydroxyzine HCl 25 mg tablet 25 mg PO TID PRN ondansetron 4 mg tablet,disintegrating 4 mg PO BID PRN multivitamin Tablet 1 tab PO DAILY propranolol 10 mg tablet 10 mg PO DAILY Rx Instructions: once daily at night Discharge Instructions Instructions: Ankle Sprain ED Additional Instructions: You were seen in the emergency department for the sprain of your right ankle, there is no fracture seen on x-ray, please rest, ice, compress and elevate the ankle often. Please use therapeutic dosing of Tylenol (acetamenophen) & Advil (ibuprofen) in an alternating fashion as follows: Take 1000mg of Tylenol every 6 hours without missing doses- that is 4 times per day. [place] in between the Tylenol dosings, take 400-600mg of Advil also on a 6 hour schedule, that is also 4 times per day. The daily maximum dosing of Tylenol is 4000mg, and the daily maximum dosing of Advil is 2400mg. This is safe to do for weeks. Please note that some common cold medications & prescription pain medications may contain acetamenophen and you need to read OTC drug labels and factor that in to maximum daily dosings. Please follow-up with orthopedics for any complications, return to the emergency room department for any signs of neurovascular compromise to the foot Stand Alone Forms: Work Release Referrals: Mechelle Galleog [Primary Care Provider, Medicine] Discharge Data Discharge Date/Time-TO BE ENTERED AT DEPARTURE: 04/09/25 21:36 HPI General Date/Time Provider Initiated Documentation: 04/09/25 19:35. HPI Narrative: 24 year-old female presents to ED today by POV/ambulating with a chief complaint of R ankle pain- twisted it at work, striking a metal rack in the kitchen on R ankle with onset just prior to arrival. Quality described as painful, worse with weight-bearing, no radiation to numbness/tingling, complete inability to weight-bear, open lesion. Severity is described as moderate. Palliating factors include iced it for 20 minutes but still hurts. Provoking factors include nothing specific. Patient not anticoagulated. Related Data Home Medications ?Medication ?Instructions ?Recorded ?Confirmed multivitamin 1 tab PO DAILY 10/01/18 04/09/25 famotidine 20 mg tablet See Rx Instructions .Route 04/21/23 04/09/25 .COMPLEX #60 tabs albuterol sulfate 90 mcg/actuation 2 puff inhalation Q4H PRN 01/23/25 04/09/25 aerosol inhaler hydroxyzine HCl 25 mg tablet 25 mg PO TID PRN 01/23/25 04/09/25 ondansetron 4 mg disintegrating 4 mg PO BID PRN 01/23/25 04/09/25 tablet sertraline 50 mg tablet 100 mg PO DAILY 01/23/25 04/09/25 norethindrone 1 mg-ethinyl 1 tab PO DAILY 04/03/25 04/09/25 estradiol 20 mcg (21)-iron 75 mg (7) tablet ([place] Fe 10/07 (28)) propranolol 10 mg tablet 10 mg PO DAILY 04/09/25 04/09/25 Previous Rx's ?Medication ?Instructions ?Recorded famotidine 20 mg tablet See Rx Instructions .Route 04/21/23 .COMPLEX #60 tabs Allergies Allergy/AdvReac Type Severity Reaction Status Date / Time Penicillins Allergy Intermediate RASH Verified 04/09/25 19:36 ethinyl estradiol (From Allergy Unknown Skin Rash Unverified 04/09/25 19:36 Xulane) norelgestromin (From Xulane) Allergy Unknown Skin Rash Unverified 04/09/25 19:36 General Stated Complaint: Orthopedic CAIN: 4 Review of Systems All systems reviewed & are unremarkable except as noted in HPI and below Exam Narrative Exam Narrative: GENERAL APPEARANCE: Well-nourished, non-toxic, awake and alert, atraumatic, no acute distress. SKIN: Warm, pink, dry, intact, without rashes/lesions/ulcerations. HEAD: Normocephalic, atraumatic, normal hair distribution for gender/age. EYES: Normal conjunctiva, no exudates on lids/lashes. ENT: Nares patent, no circumoral cyanosis, no facial swelling NECK: Supple, trachea midline, painless cervical ROM. LUNGS/CHEST: Non-labored respirations, normal A/P diameter, symmetrical expansion, no chest wall deformity HEART (CV/PV): Regular rate, R dorsalis pedis pulse 2+, no peripheral edema, no JVD. ABDOMEN: Soft, non-distended, no guarding. MSK: Normal ROM, no swelling/deformity to bilateral UEs or LEs, moving all extremities without weakness, no cyanosis, spine midline without tenderness, normal curvature. R FOOT/ANKLE: Tenderness to palpation of the lateral malleolus and lateral foot with mild swelling, no deformity, brisk capillary refill distal, no fibular head tenderness NEURO: Mental Status AAOx4 - alert to person, place, time, events No facial droop, no forehead involvement. Motor: No focal weakness - strength 5/5 in bilateral UEs and LEs, proximal and distal, symmetric. Sensory: sensation intact to light touch globally. Gait antalgic. PSYCH: euthymic, cooperative, pleasant, appropriate speech Course Vital Signs Vital signs: Vital Signs Temperature 36.9 C 04/09/25 19:32 Pulse 73 04/09/25 19:32 Respiratory Rate 16 04/09/25 19:32 Blood Pressure 126/75 04/09/25 19:32 Pulse Oximetry 98 04/09/25 19:32 Temperature 36.9 C 04/09/25 19:32 Temperature Source Oral 04/09/25 19:32 Pulse 73 04/09/25 19:32 Respiratory Rate 16 04/09/25 19:32 Blood Pressure 126/75 04/09/25 19:32 Blood Pressure Position Sitting 04/09/25 19:32 Pulse Oximetry 98 04/09/25 19:32 Oxygen Delivery Method Room Air 04/09/25 19:32 Oxygen Flow Rate 0 04/09/25 19:32 Pain Level 5 04/09/25 19:39 Medical Decision Making This dictation utilizes [id number] dictation software and may contain unedited grammatical errors. 24 year-old female presents to ED today by POV/ambulating with a chief complaint of R ankle pain- R-side dominant- twisted it at work, striking a metal rack in the kitchen on R ankle with onset just prior to arrival. Quality described as painful, worse with weight-bearing, no radiation to numbness/tingling, complete inability to weight-bear, open lesion. Severity is described as moderate. Palliating factors include iced it for 20 minutes but still hurts. Provoking factors include nothing specific. Patients' medical history: noncontributory. Family and social history: noncontributory. Pertinent exam findings / vital signs include R ankle swelling, R dorsalis pedis pulse 2+, R lateral foot tenderness without crepitus, no proximal calf/knee tenderness. Differential / pathologies of concern include sprain/strain, contusion, fracture. Diagnostic studies of: -XR R Foot & Ankle - no fracture seen. Interventions of: -nallely wrap. ED Course/Assessment/Plan: 24-year-old female presents with right ankle pain after she twisted and banged off a metal rack in the kitchen, has no fracture on x-ray likely sprain of the ankle, recommend RICE therapy and therapeutic dosing of Tylenol and ibuprofen. Findings not consistent with [ ]. Disposition of Sprain of Right Ankle. Patient verbalized understanding of the plan and return to ED criteria and engaged in shared decision making. Medical Records Medical records reviewed: Yes I reviewed the patient's medical records. Imaging Data Radiologic Study: Attestation: I personally reviewed and interpreted this imaging study as follows: Imaging: X-Ray Radiologist's impression: Exam: XR Right Ankle Exam date and time: 04/09/2025 8:24 PM Age: 24 years old Clinical indication: Ankle and foot; Right; R foot and ankle pain TECHNIQUE: Imaging protocol: Radiologic exam of the right ankle. Views: 3 or more views. COMPARISON: No relevant prior studies available. FINDINGS: Bones/joints: No acute fracture. No dislocation. No suspicious bony lesions. Soft tissues: There is lateral malleolar soft tissue swelling. No tibiotalar joint effusion. IMPRESSION: No acute fracture or dislocation. Dictated and Authenticated by: Gemma Schaefer MD. Radiologic Study #2: Attestation: I personally reviewed and interpreted this imaging study as follows: Imaging: X-Ray Radiologist's impression: Exam: XR Right Foot Exam date and time: 04/09/2025 8:22 PM Age: 24 years old Clinical indication: Ankle and foot; Right; R foot and ankle pain TECHNIQUE: Imaging protocol: Radiologic exam of the right foot. Views: 3 or more views. COMPARISON: CR XR ANKLE RT COMPLETE 08/20/2024 3:56 PM FINDINGS: Bones/joints: No acute fracture or dislocation. No suspicious bony lesions. Soft tissues: No soft tissue swelling. IMPRESSION: No acute radiographic findings. If pain persists, consider repeat imaging in 5-7 days to exclude occult fracture. PFSH All Active Problems (Updated 04/09/25 @ 20:45 by WILMER Gama) Sprain of right ankle (Acute) Conductive hearing loss of both ears (Acute) Acute otitis media, bilateral (Acute) Amenorrhea (Acute) Right lower quadrant pain (Acute) Focal tenderness with no fever chills nausea or vomiting we will check CBC. Oral contraceptive pill surveillance (Acute) 07/2022. Currently no breakthrough bleeding on current regime x1 month. We will continue to follow-up on a monthly basis. 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) Routine child health exam (Chronic 03/25/14) Medical History (Updated 04/09/25 @ 20:45 by WILMER Gama) Impacted cerumen of both ears COVID-19 Acute depression Injury of head Suprapubic pain Abdominal pain Heartburn Vomiting Cough Delay in physiological development Malaise and fatigue Chronic constipation Sore throat Viral syndrome Acid reflux disease Causes chest pain Family disruption due to child in welfare custody Fracture of fifth metacarpal bone (06/17/13) Reactive airways dysfunction syndrome Developmental delay Surgical History Myringotomy w/ PE (pressure equalizing) tubes Family History (Updated 01/23/25 @ 10:23 by Shoshana Bourne RN) Self Adopted Social History Smoking/Tobacco Use Status: Never Smoking risk assessment performed?: Yes Alcohol Intake: never Drug use: Never Substance use type: does not use Household members: adopted family and other Details: Patient brother adopted when children. Other siblings and family are also Housing: house Number of Children: 0 Education Level: high school Details: Transition year Do you need help understanding health information?: Always current occupation: Works in [employer] at [employer] in [place] Pets and animals: Yes Pets and animals: dog(s) Sexually active: No What type of physical activity do you participate in: walking Seatbelt use: always Do you feel safe at home: Yes Do you feel safe in your relationship?: Yes Additional Social history: Lives with adopted mom and dad
--- NOTE | 2025-04-09 19:45 | DI.RAD_ITS ---
Exam(s) XR ANKLE RT COMPLETE EXAM: XR ANKLE RT COMPLETE CLINICAL HISTORY: R foot and ankle pain. TECHNIQUE: 2D digital imaging was performed. Three views. COMPARISON: CR XR ANKLE RT COMPLETE from 08/20/2024 CR,XR XR FOOT RT COMPLETE from 04/09/2025 FINDINGS: BONES: No acute fracture is present. No bony destructive lesion is seen. JOINTS: The ankle mortise is normally aligned. SOFT TISSUE: Mild soft tissue swelling. IMPRESSION: Mild soft tissue swelling. The preliminary [facility] report was reviewed. DATA REPOSITORY: RADIATION DOSE DELIVERED:
[2025-04-09] MEDS: Ibuprofen 400 MG TAB PO (20:03)
[2025-04-09] MEDS: Acetaminophen 500 MG TAB 1000 MG PO (20:03)
--- NOTE | 2025-04-09 20:24 | DI.RAD_ITS ---
Exam(s) XR FOOT RT COMPLETE EXAM: XR FOOT RT COMPLETE CLINICAL HISTORY: R foot and ankle pain. TECHNIQUE: 2D digital imaging was performed. Three views. COMPARISON: No exams were available for comparison FINDINGS: BONES: No acute fracture is present. No bony destructive lesion is seen. JOINTS: No dislocation present. SOFT TISSUE: Normal. IMPRESSION: Unremarkable radiographs of the right foot. DATA REPOSITORY: RADIATION DOSE DELIVERED:
--- NOTE | 2025-04-09 21:41 | DI.[facility]_ITS ---
PROCEDURE INFORMATION: Exam: XR Right Ankle Exam date and time: 04/09/2025 8:24 PM Age: 24 years old Clinical indication: Ankle and foot; Right; R foot and ankle pain TECHNIQUE: Imaging protocol: Radiologic exam of the right ankle. Views: 3 or more views. COMPARISON: No relevant prior studies available. FINDINGS: Bones/joints: No acute fracture. No dislocation. No suspicious bony lesions. Soft tissues: There is lateral malleolar soft tissue swelling. No tibiotalar joint effusion. IMPRESSION: No acute fracture or dislocation. Dictated and Authenticated by: Gemma Schaefer MD. Orderin Alan Rivas MD
--- NOTE | 2025-04-09 21:43 | DI.[facility]_ITS ---
PROCEDURE INFORMATION: Exam: XR Right Foot Exam date and time: 04/09/2025 8:22 PM Age: 24 years old Clinical indication: Ankle and foot; Right; R foot and ankle pain TECHNIQUE: Imaging protocol: Radiologic exam of the right foot. Views: 3 or more views. COMPARISON: CR XR ANKLE RT COMPLETE 08/20/2024 3:56 PM FINDINGS: Bones/joints: No acute fracture or dislocation. No suspicious bony lesions. Soft tissues: No soft tissue swelling. IMPRESSION: No acute radiographic findings. If pain persists, consider repeat imaging in 5-7 days to exclude occult fracture. Dictated and Authenticated by: Gemma Schaefer MD. Orderin Alan Rivas MD
== END 2025-04-09 21:36 | disposition home or self-care (01) ==
PROVIDERS: Emergency Provider Physician Assistant; PCP Nurse Practitioner Family
DX: S93.401A Sprain of unspecified ligament of right ankle, initial encounter (principal); X50.1XXA Overexertion from prolonged static or awkward postures, initial encounter; Y93.G3 Activity, cooking and baking; Y92.89 Other specified places as the place of occurrence of the external cause
CPT/HCPCS: 99283; 73610; 73630

== ENCOUNTER 2025-04-18 01:39 | Outpatient (CLI) | payer MEDICAID, SELFPAY ==
--- NOTE | 2025-04-18 07:38 | DI.US_ITS ---
Exam(s) US BREAST LT COMPLETE US BREAST RT COMPLETE EXAM: US BREAST LT COMPLETE US BREAST RT COMPLETE CLINICAL HISTORY: white nipple discharge,n64.52. TECHNIQUE: Complete ultrasound of both breasts was performed including all 4 quadrants, the retroareolar regions, and both axillary regions. COMPARISON: None. This 24-year-old has been having some recent bilateral nonbloody white nipple discharge. No history of recent breast-feeding. She denies feeling a lump and denies breast pain. FINDINGS: There is no evidence of solid or significant cystic lesions in all 4 quadrants of both breasts. Scanning of both axillary regions is negative for significant adenopathy. IMPRESSION: Negative bilateral complete breast ultrasound exam. Given the history here recommend correlation with appropriate blood work BI-RADS Category 1 - Negative Breast Density - Category C - The breast are heterogeneously dense, which may obscure small masses. Breast density Category C or D implies that the patient has dense breast tissue. Dense breast tissue can make it harder to find cancer on a mammogram. Dense breast tissue is also associated with an increased risk of breast cancer. This information about the result of the mammogram report was provided to the patient to raise their awareness. Use this report when you speak with the patient about their risks for breast cancer, which includes their family history. At that time, you may recommend additional screening tests (Ultrasound or MRI) as these tests may add significant information. A negative radiographic report should not delay biopsy if a dominant or clinically suspicious mass is present. Up to ten percent of cancers are not identified on mammography. A negative report may reinforce clinical impression. Adenosis and dense breasts may obscure an underlying neoplasm. False positive reports average 6 to 10%. Patient will receive a letter notifying them of these results.
== END 2025-04-18 01:59 ==
LOC: DI 01:39
PROVIDERS: PCP Nurse Practitioner Family; Visit Provider Obstetrics & Gynecology
DX: N64.52 Nipple discharge (principal)
CPT/HCPCS: 76642

== ENCOUNTER 2025-05-05 13:53 | Outpatient (REF) | payer MEDICAID, SELFPAY ==
--- NOTE | 2025-05-05 13:20 | PAPFT_PTH ---
PATIENT: Bianca Vargas LOC: [facility] U#:[id number] AGE/SX: 24/F ROOM: RE05/05/[address]: Rosina Lewis NP : 2000 BED: DIS: 05/05/2025 SPEC #: [id number] RECD: 05/05/25 18:00 STATUS: ERIKA REQ #: [id number] CINTIA: 05/05/25 13:[address]: Rosina Lewis NP DEPT: [facility] Cytology RECD BY: Flory Che ENTERED: 05/05/25 18:00 SP TYPE: PAPFT OTHR DR: Mechelle Gallego Tissues: 1 - CX/ENDOCX FOR PAP SMEARS Procedures: PAP THIN PREP/[facility] Screening Comments: [id number]
== END 2025-05-05 13:54 | disposition home or self-care (01) ==
LOC: LBN 13:53
PROVIDERS: PCP Nurse Practitioner Family; Visit Provider Nurse Practitioner Women's Health
DX: Z12.4 Encounter for screening for malignant neoplasm of cervix (principal)
CPT/HCPCS: 88142

== ENCOUNTER 2025-05-13 02:14 | Outpatient (CLI) | payer MEDICAID, SELFPAY ==
--- NOTE | 2025-05-13 07:00 | DI.MRI_ITS ---
Exam(s) MR BRAIN PITUITARY WO/W EXAM: MR BRAIN PITUITARY WO/W CLINICAL HISTORY: Spontaneous without ,LCATION DISORDER,o92.70 TECHNIQUE: Multiplanar multisequence MRI of the brain and pituitary gland was performed. CONTRAST MATERIAL: IV Contrast: 14 mL of Dotarem contrast administered. Priors: No exams were available for comparison Findings: VENTRICLES AND EXTRA AXIAL SPACES: Normal in size and morphology for the patient's age. HEMORRHAGE: None. CEREBRAL PARENCHYMA: No focus of restricted diffusion to suggest acute infarct. No space-occupying lesion identified. MIDLINE SHIFT: None. BRAINSTEM/CEREBELLUM: Normal. CALVARIUM: Normal. ENHANCEMENT: No suspicious enhancement identified. VISUALIZED PARANASAL SINUSES/MASTOIDS: Clear. OTHER FINDINGS: None. PITUITARY: Pituitary stalk is midline. The gland demonstrates homogenous T2-weighted signal intensity with homogeneous enhancement. No evidence of macroadenoma or microadenoma. There is a normal posterior T1 hyperintense bright spot. The optic chiasm is unremarkable. The cavernous portions of both carotid arteries are unremarkable. Impression: Unremarkable MRI of the brain and pituitary gland. DATA REPOSITORY:
[2025-05-13] MEDS: Gadoterate meglumine 20 ML VIAL 14 ML IVP (12:38)
[2025-05-13] MEDS: Normal Saline Flush 10 ML SYR IJ (12:39)
== END 2025-05-13 02:34 ==
LOC: DI 02:14
PROVIDERS: PCP Nurse Practitioner Family; Visit Provider Obstetrics & Gynecology
DX: O92.70 Unspecified disorders of lactation (principal)
CPT/HCPCS: 70553

== ENCOUNTER 2025-08-18 21:19 | Outpatient (REF) | payer MEDICAID, SELFPAY ==
[2025-08-20 13:54] LABS: HSV 1 DNA Result Negative (Negative); HSV 2 DNA Result Negative (Negative); Varicella Zoster DNA Result Negative (Negative)
== END 2025-08-18 21:20 | disposition home or self-care (01) ==
LOC: NCHCN 21:19
PROVIDERS: PCP Nurse Practitioner Family; Visit Provider Nurse Practitioner Family
DX: L98.9 Disorder of the skin and subcutaneous tissue, unspecified (principal)
CPT/HCPCS: 87077; 87529; 87798; 87070; 87186